=== PATIENT | male | born 1995 | race Caucasian/White ===

== ENCOUNTER 2024-05-18 12:39 | Emergency (ER) | payer MEDICAID, OTHER ==
[~2024-05-18] VITALS: Ht 180.3 cm; Wt 111.1 kg
[2024-05-18 16:00] VITALS: BP 137/78; TEMP 98.2; O2SAT 99
== END 2024-05-18 16:01 | disposition home or self-care (01) ==
LOC: ER 12:51
DX: M79.662 Pain in left lower leg (principal); M79.89 Other specified soft tissue disorders; R00.2 Palpitations; R06.02 Shortness of breath; I10 Essential (primary) hypertension
CPT/HCPCS: 36415; 71045-TC; 83735-TC; 84484-TC; 85378-TC; 93971-TC